=== PATIENT | female | born 1980 | race Hispanic/Latino ===

== ENCOUNTER 2019-10-15 05:50 | Day surgery (SDC) | payer BC, OTHER ==
[~2019-10-15] VITALS: Ht 154.9 cm; Wt 77.1 kg
[~2019-10-15 05:50] MED LIST: ATIVAN1 MG PO; CIPRO500 MG PO; GLUCOPHAGE500 MG PO; LABETALOL HCL200 MG PO; MULTI VITAMIN1 EACH PO; OMEGA 3 1,0001 EACH PO; PENICILLIN V P500 MG PO; ZESTRIL20 MG PO
[2019-10-15] MEDS ORDERED: LISINOPRIL-HCT1 EAC2 PO (06:19)
--- NOTE | 2019-10-15 08:56 | NUR ---
10/15/19 0856 Meagan,Debbie 0873 PT ARRIVED TO PACU ON 6L VIA MASK, PT WAKES AND DENIES PAIN AND NAUSEA. RESP EVEN AND UNLABORED. PT REORINENTED TO PACU. 0854 O2 REMOVED AND PT OWN N95 PLACED ON PT. PT FALLS EASILY BACK TO SLEEP AND VSS.
--- NOTE | 2019-10-15 09:23 | NUR ---
PATIENT BACK TO ROOM FROM PACU. PATIENT DROWSY, AWAKE ON AND OFF. REPORTS NO PAIN AT THIS TIME. DISCUSSED PLAN OF CARE FOR PAIN MANAGEMENT. PROVIDED PATIENT WITH ICE WATER AND WARM BLANKETS. DRESSING TO BUTTOCKS C/D/I, ICE APPLIED. PATIENT SUPINE AT THIS TIME, STATES "FEELS GOOD TO FINALLY BE ABLE TO LAY ON MY BACK WITH NO PAIN". CALL LIGHT WITHIN REACH.
[2019-10-15] MEDS ORDERED: DOXYCYCLINE HY100 MG PO (10:20)
[2019-10-15] MEDS ORDERED: NORCO 5-325 TA1 EACH PO (10:20)
--- NOTE | 2019-10-15 10:45 | NUR ---
PATIENT UP TO BATHROOM VOIDED. APPEARS STEADY ON FEET. NO COMPLAINTS OF PAIN AT THIS TIME. PROVIDED PATIENT WITH GAUZE AND PAPER TAPE FOR HOME CARE. PACKING IN PLACE, NO DRAINAGE TO ABD PAD. DISCUSSED DISCHARGE EDUCATION. PATIENT REQUESTED TO AMBULATE TO FRONT, TOLERATED WELL. INTO PRIVATE VEHICLE. SCRIPT IN FOLDER WITH PATIENT.
--- NOTE | 2019-10-18 11:45 | OR ---
[facility] [address] [place], [place] [address] Signed DATE OF OPERATION: 10/15/2019 SURGEON: Elizabeth Feliciano MD PREOPERATIVE DIAGNOSIS: Right gluteal abscess (5-7 cm). POSTOPERATIVE DIAGNOSIS: Right gluteal abscess (5-7 cm). PROCEDURES: 1. Incision and drainage, right gluteal abscess. 2. Deep wound cultures. ESTIMATED BLOOD LOSS: None. INDICATIONS: Jose A is a 39-year-old female, who had her fourth baby just 5-1/2 months ago. All four babies have been delivered by . In addition, she had bilateral tubal ligation at this last . She has been doing well, the baby. Her first menstrual cycle came, and she said it was quite heavy. She was using very heavy thick elpidio-pads with tape on both sides, it went on for 10 days. She developed irritation and abrasion and scabbing on each side of the gluteal crease. She had been itching on that area and had what she thought was a small boil. This all started five days ago, each day it became progressively worse. It is now the size of a baseball, quite red, quite indurated, quite warm, and quite painful. She had been to her primary care provider, who asked her to come see me directly. In the office with our medical terminologist in the room, we could easily see this area. There was a small punctate area in the center. It was not quite fluctuant up to the surface. I explained to Jose A given the amount of pain in the large area that she had, it would be better to drain this in the operating room under anesthesia. Apparently, she had some trouble with her last epidural and decided she wanted nothing to do with any kind of a saddle block. She wanted to proceed with general anesthetic. I explained to her the nature of the incision that we would leave that open and it would heal in secondarily over several weeks. We leave packing for one day. She can remove that and shower and bathe as usual. We are going to have her put Bactroban ointment around it and use doxycycline 100 mg p.o. b.i.d. along with some hydrocodone for pain control. She understands there is risk of surgery including, but not limited to bleeding, infection, scarring, change in contour of the skin as well as recurrent abscesses in the same or other locations. Electronically Signed By: ELIZABETH FELICIANO MD 10/18/19 1145 PATIENT NAME: JOSE A MESSER OPERATIVE REPORT DATE OF : 82 REPORT #: [id number] PHYSICIAN: ELIZABETH FELICIANO MD PCP: MALLORIE MOSELEY MD REPORT IS CONFIDENTIAL AND NOT TO BE RELEASED WITHOUT AUTHORIZATION [address] [address] Signed She had expressed understanding and wished to proceed. PROCEDURE NOTE: I met with Jose A in our preop area. After marking the area with our nurse in the room. She was taken to the operating room and placed in the prone aric-knife position under general endotracheal tube anesthesia. She was given preoperative antibiotics along with subcutaneous heparin. SCDs were utilized. She was prepped and draped in usual sterile fashion. We made a vertical incision over the area about 2 cm in length. She had a pocket of pus underneath the skin adipose tissue. We took deep wound cultures. The area was irrigated and suctioned out. We had to extend the incision another centimeter inferiorly to drain additional areas of pus. She had quite a bit of pus that is right in the dermis itself that we squeezed out. We debrided all the loose tissue. The wound was irrigated once again. We then injected the entire wound with local anesthetic. The wound was then packed with full-strength Dakin's solution. This was covered with dry ABD and underwear. Jose A was then rotated into the supine position on her hospital bed, weaned from anesthesia and extubated in the OR. She was then taken into recovery room in stable condition. Elizabeth Feliciano MD ALB/MODL /[id number] cc: MD Elizabeth Silva MD Copies: DAVIAN TRAN MD, ANDREW L MD ~ Electronically Signed By: ELIZABETH FELICIANO MD 10/18/19 1145 PATIENT NAME: JOSE A MESSER OPERATIVE REPORT DATE OF : 82 REPORT #: [id number] PHYSICIAN: ELIZABETH FELICIANO MD PCP: MALLORIE MOSELEY MD REPORT IS CONFIDENTIAL AND NOT TO BE RELEASED WITHOUT AUTHORIZATION
== END 2019-10-15 10:45 | disposition home or self-care (01) ==
LOC: DS 05:50 → EDSTATUS 07:30 → DS 10:45
PROVIDERS: Colon & Rectal Surgery
PROC: 0H9HXZZ Drainage of Right Upper Leg Skin, External Approach (ICD-10-PCS; principal; 2019-10-15 07:30)
DX: L02.31 Cutaneous abscess of buttock (principal); I10 Essential (primary) hypertension; J32.9 Chronic sinusitis, unspecified; F41.9 Anxiety disorder, unspecified; J45.909 Unspecified asthma, uncomplicated; B00.9 Herpesviral infection, unspecified; Z79.899 Other long term (current) drug therapy
CPT/HCPCS: 36415; 80048; 84703; 85025; J1100; J1644; J1885; J2001; J2405; J2704; J3010; J7121

== ENCOUNTER 2020-11-23 21:52 | Emergency (ER) | payer OTHER ==
[~2020-11-23] VITALS: Ht 154.9 cm; Wt 89.1 kg
[~2020-11-23 21:52] MED LIST changes: +DOXYCYCLINE HY100 MG PO; +LISINOPRIL-HCT1 EAC2 PO; +NORCO 5-325 TA1 EACH PO
[2020-11-23] MEDS ORDERED: LISINOPRIL-HCT1 EACH PO (22:08)
--- NOTE | 2020-11-24 11:40 | EKG ---
[facility] [address] [facility] [place], [place] [address] Signed Normal sinus rhythm Normal ECG When compared with ECG of 16-AUG-2019 13:21, No significant change was found Confirmed by ALCIDES GARY DO ([id number]) on 11/24/2020 11:40:11 AM Electronically Signed By: ALCIDES GARY DO 11/24/20 1140 PATIENT NAME: JOSE A MESSER Electrocardiogram DATE OF : 82 PHYSICIAN: ALCIDES GARY DO REPORT #: [id number] REPORT IS CONFIDENTIAL AND NOT TO BE RELEASED WITHOUT AUTHORIZATION
== END 2020-11-23 23:30 | disposition home or self-care (01) ==
LOC: ED 21:52
DX: M79.605 Pain in left leg (principal); M79.602 Pain in left arm; R07.9 Chest pain, unspecified; I10 Essential (primary) hypertension; Z88.8 Allergy status to other drugs, medicaments and biological substances; Z79.899 Other long term (current) drug therapy
CPT/HCPCS: 80053; 84484; 85025; 93005; 93010; 99285-25

== ENCOUNTER 2021-01-27 05:06 | Emergency (ER) | payer OTHER ==
[~2021-01-27] VITALS: Ht 154.9 cm; Wt 81.8 kg
[~2021-01-27 05:06] MED LIST changes: +LISINOPRIL-HCT1 EACH PO
[2021-01-27] MEDS ORDERED: OMEPRAZOLE20 MG PO (06:54)
== END 2021-01-27 07:02 | disposition home or self-care (01) ==
LOC: ED 05:06
DX: K30 Functional dyspepsia (principal); I10 Essential (primary) hypertension; Z88.8 Allergy status to other drugs, medicaments and biological substances; Z79.899 Other long term (current) drug therapy
CPT/HCPCS: 80053; 81001; 83690; 84703; 85025; 96374; 99284-25; C9113

== ENCOUNTER 2021-10-27 22:09 | Emergency (ER) | payer OTHER ==
[~2021-10-27] VITALS: Ht 154.9 cm; Wt 82.9 kg
[~2021-10-27 22:09] MED LIST changes: +OMEPRAZOLE20 MG PO
--- OUTSIDE RECORDS SUMMARY | 2021-10-27 22:12 | XMS ---
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 - [facility] - 2 Visits in 30 Days CARE PROVIDERS Bryan Gerber Community Health Worker 08/14/2018-Current PHONE: [phone] Emily Regalado-C Nurse Practitioner: Family Current PHONE: [phone] Care Guidelines exist for the following facilities: [facility] ( 05/22/2019 ) Lan VISIT COUNT (12 MO.) 4 [facility] 3 [facility] V[facility] [place] TOTAL 7 NOTE: Visits indicate total known visits. ED/UCC VISIT TRACKING (12 MO.) 10/27/2021 22:[address] [facility] [place] TYPE: Emergency COMPLAINT: - CHEST PAIN 10/08/2021 23:12 [facility] [place] TYPE: Emergency COMPLAINT: - HIGH BLOOD PRESSURE DIAGNOSES: - HIGH BLOOD PRESSURE 07/01/2021 12:30 [facility] [employer] [place] TYPE: Emergency DIAGNOSES: - Essential (primary) hypertension - Chest pain, unspecified - CHEST PAIN - Anxiety disorder, unspecified 04/30/2021 08:52 [facility] [employer] [place] TYPE: Emergency DIAGNOSES: - KIDNEY STONE - Unspecified abdominal pain 04/28/2021 07:02 [facility] [place] TYPE: Emergency DIAGNOSES: - RIGHT SIDE PAIN - Calculus of kidney 01/27/2021 05:07 [facility] [place] TYPE: Emergency COMPLAINT: - ABD PAIN DIAGNOSES: - Essential (primary) hypertension - Allergy status to other drugs, medicaments and biological substances - Functional dyspepsia - Other intermediate (current) drug therapy 11/23/2020 21:[address] [facility] [place] TYPE: Emergency COMPLAINT: - LT LEG PAIN DIAGNOSES: - Other intermediate (current) drug therapy - Chest pain, unspecified - Essential (primary) hypertension - Chest pain, unspecified - Pain in left leg - Allergy status to other drugs, medicaments and biological substances - Pain in left leg - Pain in left arm INPATIENT VISIT TRACKING (12 MO.) No inpatient visits to display in this time frame [email or web address]
[2021-10-27] MEDS ORDERED: AMLODIPINE BESYL5 MG PO (22:19)
[2021-10-27] MEDS ORDERED: METFORMIN HCL750 MG PO (23:52)
--- NOTE | 2021-10-28 07:39 | EKG ---
[facility] [facility] [address] [facility] [place], [place] [address] Signed Sinus tachycardia Otherwise normal ECG No previous ECGs available Confirmed by AMBREEN GUTIERREZ MD ([id number]) on 10/28/2021 7:39:27 AM Electronically Signed By: AMBREEN GUTIERREZ MD 10/28/21 0739 PATIENT NAME: JOSE A MESSER Electrocardiogram DATE OF : 82 PHYSICIAN: AMBREEN GUTIERREZ MD REPORT #: [id number] REPORT IS CONFIDENTIAL AND NOT TO BE RELEASED WITHOUT AUTHORIZATION
== END 2021-10-28 00:49 | disposition home or self-care (01) ==
LOC: ED 22:09
DX: E11.9 Type 2 diabetes mellitus without complications (principal); I10 Essential (primary) hypertension; Z88.8 Allergy status to other drugs, medicaments and biological substances; Z79.899 Other long term (current) drug therapy
CPT/HCPCS: 36415; 71045; 80053; 83735; 84484; 84703; 85025; 85379; 85610; 93005; 93010; 96365; 96375; 99284-25; A9270; J1815; J2060; J3475; J7030

== ENCOUNTER 2022-04-27 19:45 | Emergency (ER) | payer OTHER ==
[~2022-04-27] VITALS: Ht 154.9 cm; Wt 82.5 kg
[~2022-04-27 19:45] MED LIST changes: +AMLODIPINE BESYL5 MG PO; +METFORMIN HCL750 MG PO
--- OUTSIDE RECORDS SUMMARY | 2022-04-27 19:48 | XMS ---
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 ED/UCC VISIT TRACKING (12 MO.) 04/27/2022 19:47 [facility] [place] COMPLAINT: - LUNG PAIN 02/10/2022 13:44 [facility] [place] TYPE: Emergency DIAGNOSES: - Left lower quadrant pain - L ABD PAIN VAGINAL BLEEDING 02/04/2022 12:03 [facility] [place] TYPE: Emergency DIAGNOSES: - SHORTNESS OF BREATH COUGH - Acute upper respiratory infection, unspecified 10/27/2021 22:10 [facility] [place] TYPE: Emergency COMPLAINT: - CHEST PAIN DIAGNOSES: - Other termite exterminator (current) drug therapy - Essential (primary) hypertension - Type 2 diabetes mellitus without complications - Allergy status to other drugs, medicaments and biological substances - Shortness of breath 10/08/2021 23:12 [facility] [place] TYPE: Emergency COMPLAINT: - HIGH BLOOD PRESSURE DIAGNOSES: - HIGH BLOOD PRESSURE 07/01/2021 12:30 [facility] [place] TYPE: Emergency DIAGNOSES: - Anxiety disorder, unspecified - Chest pain, unspecified - CHEST PAIN - Essential (primary) hypertension 04/30/2021 08:52 [employer] [place] TYPE: Emergency DIAGNOSES: - Unspecified abdominal pain - KIDNEY STONE 04/28/2021 07:02 [employer] [place] TYPE: Emergency DIAGNOSES: - Calculus of kidney - RIGHT SIDE PAIN INPATIENT VISIT TRACKING (12 MO.) No inpatient visits to display in this time frame [id number]
[2022-04-28] MEDS ORDERED: ULTRAM50 MG PO (01:07)
== END 2022-04-28 01:29 | disposition home or self-care (01) ==
LOC: ED 19:45
DX: M94.0 Chondrocostal junction syndrome [Tietze] (principal); Z20.822 Contact with and (suspected) exposure to COVID-19; I10 Essential (primary) hypertension; Z87.442 Personal history of urinary calculi; Z88.8 Allergy status to other drugs, medicaments and biological substances; Z79.84 Long term (current) use of oral hypoglycemic drugs; Z79.899 Other long term (current) drug therapy
CPT/HCPCS: 36415; 71045; 71250; 80053; 83880; 85025; 85379; 87502; 96374; 99285-25; A9270; C9803; J1885; U0003